=== PATIENT | female | born 1975 | race Two or more races ===

== ENCOUNTER 2020-02-13 07:43 | Emergency (ER) | payer OTHER ==
[~2020-02-13] VITALS: Ht 175.3 cm; Wt 127.0 kg
[2020-02-13] MEDS ORDERED: SYNTHROID125 MCG (07:56)
[2020-02-13] MEDS ORDERED: AZITHROMYCIN250 MG PO (12:24)
[2020-02-13] MEDS ORDERED: DECADRON6 MG PO (12:24)
== END 2020-02-13 12:57 | disposition home or self-care (01) ==
LOC: ER 07:43
DX: J02.9 Acute pharyngitis, unspecified (principal); Z03.818 Encounter for observation for suspected exposure to other biological agents ruled out

== ENCOUNTER 2021-11-13 08:22 | Outpatient (CLI) | payer OTHER ==
[~2021-11-13 08:22] MED LIST: AZITHROMYCIN250 MG PO; DECADRON6 MG PO; SYNTHROID125 MCG
== END 2021-11-13 15:00 | disposition home or self-care (01) ==
LOC: LAB 08:22
PROVIDERS: ATTEND Internal Medicine
DX: E11.65 Type 2 diabetes mellitus with hyperglycemia (principal); E03.9 Hypothyroidism, unspecified; I10 Essential (primary) hypertension; E78.5 Hyperlipidemia, unspecified; E11.8 Type 2 diabetes mellitus with unspecified complications

== ENCOUNTER 2022-04-09 11:40 | Outpatient (CLI) | payer OTHER | END 2022-04-09 11:52 | disposition home or self-care (01) | LOC: RAD 11:40 | PROVIDERS: ATTEND Internal Medicine Pulmonary Disease | DX: J45.31 Mild persistent asthma with (acute) exacerbation (principal); E66.01 Morbid (severe) obesity due to excess calories; Z86.16 Personal history of COVID-19; R05.3 Chronic cough ==

== ENCOUNTER 2022-08-28 09:23 | Outpatient (CLI) | payer OTHER | END 2022-08-28 12:39 | disposition home or self-care (01) | LOC: LAB 09:23 | PROVIDERS: ATTEND General Practice | DX: Z00.00 Encounter for general adult medical examination without abnormal findings (principal); E78.5 Hyperlipidemia, unspecified; E55.9 Vitamin D deficiency, unspecified; N39.0 Urinary tract infection, site not specified; R10.9 Unspecified abdominal pain; R42 Dizziness and giddiness ==